=== PATIENT | female | born 1995 | race Caucasian/White ===

== ENCOUNTER → 2021-03-14 13:00 | Outpatient (BNVA) | payer BC, SELFPAY | PROVIDERS: Family Provider Family Medicine; Visit Provider Nurse Practitioner | DX: R10.9 Unspecified abdominal pain (principal); N39.0 Urinary tract infection, site not specified | CPT/HCPCS: 81000; 87086 ==

== ENCOUNTER 2025-08-22 08:54 | Inpatient (IN) | payer SELFPAY ==
[2025-08-22 08:59] VITALS: BP 124/92; PULSE 106; RESP 16; TEMP 36.7; O2SAT 100
--- NOTE | 2025-08-22 09:07 | USR_ITS ---
PROCEDURE INFORMATION: Exam: US Right Breast Limited; Cellulitis or Abscess Evaluation Exam date and time: 08/22/2025 9:33 AM Age: 30 years old Clinical indication: Breast pain; Right; Additional info: Mastitis TECHNIQUE: Imaging protocol: Right breast ultrasound. Exam limited to the quadrant(s) of clinical concern. Exam focused on the evaluation of cellulitis or abscess. Exam is an emergent request and a non-BIRADS study. COMPARISON: No relevant prior studies available. FINDINGS: Breast/Soft tissues: At the 1 to 5 o'clock position of the right breast there is diffuse edema and complex fluid collection. Findings are consistent with infection. US/US breast RT limited* [id number] IMPRESSION: Complex fluid and edema at the 1 to 5 o'clock position of the right breast suggestive of infection.
[2025-08-22] MEDS: cefTRIAXone 1,000 MG in water for injection-sterile 2.1 ML 2.1 MG IM (09:13)
--- NOTE | 2025-08-22 09:14 | W.ED.GENADLT ---
HPI - General Adult General: Chief complaint: General Medical Stated complaint: R brest 2 lumbs red fever Time Seen by Provider: 08/22/25 09:04 Source: patient Mode of arrival: ambulatory Limitations: no limitations History of Present Illness: 30-year-old female states that she has had redness swelling pain to right breast. Patient states she was seen at [facility] on Sunday has been Augmentin denies any improvement. States pain sharp in nature rates it a 7 out of 10 denies any fevers Related Data Home Medications ?Medication ?Instructions ?Recorded ?Confirmed amoxicillin 875 mg-potassium 1 tab PO BID 08/22/25 08/22/25 clavulanate 125 mg tablet Previous Rx's ?Medication ?Instructions ?Recorded clobetasol 0.05 % topical cream 1 applic topical BID 2 weeks #60 07/11/25 grams hydroxyzine HCl 50 mg tablet 50 mg PO Q6H PRN anxiety #60 tabs 07/11/25 Allergies Allergy/AdvReac Type Severity Reaction Status Date / Time No Known Allergies Allergy Verified 07/11/25 10:14 [facility] ED PFSH: Medical History Environmental and seasonal allergies Social History Smoking and tobacco/nicotine status: never used tobacco/nicotine Physical Exam Const: COMMON NORMALS: no acute distress, patient oriented x3 and healthy appearing HENMT: COMMON NORMALS: normocephalic and atraumatic HEAD & SCALP: normocephalic and atraumatic Neck/C-Spine: COMMON NORMALS: full ROM and supple Chest: COMMONS NORMALS: normal inspection of the chest Resp: COMMON NORMALS: normal respiratory effort Cardio: COMMON NORMALS: regular rate RATE: regular rate Extremity: COMMON NORMALS: normal to inspection and full ROM Neuro: COMMON NORMALS: patient oriented x3, moves all extremities and no focal motor deficits Psych: COMMON NORMALS: mental status grossly normal, Normal thought process present and cooperative THOUGHT PROCESS: Normal thought process present Skin: COMMON NORMALS: no wounds NARRATIVE SKIN EXAM: Erythema warmth to right breast Course Vital Signs: Vital signs: Vital Signs Temperature 98.0 F 08/22/25 08:59 Pulse Rate 105 H 08/22/25 10:07 Respiratory Rate 16 08/22/25 08:59 Blood Pressure 126/86 08/22/25 10:07 Pulse Oximetry 100 08/22/25 10:07 Oxygen Delivery Me thod Room Air 08/22/25 10:07 MDM - General Adult Medical Decision Making Patient presents here with redness to her right breast ultrasound here showed complex abscess. I did speak to surgeon on-call Dr. Kaufman who stated that patient likely take to the OR did give her IV vancomycin. Medical Records I reviewed the patient's medical records. Lab Data I reviewed the patient's lab results. 08/22/25 09:54 08/22/25 09:54 Radiology Impressions Breast Ultrasound 08/22/25 09:07 IMPRESSION: Complex fluid and edema at the 1 to 5 o'clock position of the right breast suggestive of infection. Laboratory Results WBC 11.98 10^3/uL (3.29-11.43) H 08/22/25 09:54 RBC 4.64 10^6/uL (3.85-5.65) 08/22/25 09:54 Hgb 13.60 g/dL (11.27-16.99) 08/22/25 09:54 Hct 40.0 % (36-47) 08/22/25 09:54 MCV 86.2 fl (85-98) 08/22/25 09:54 MCH 29.3 pg (27-33) 08/22/25 09:54 MCHC 34.0 g/dL (30-55) 08/22/25 09:54 RDW 12.3 % (12.1-15.1) 08/22/25 09:54 Plt Count 331 10^3/cmm (157-399) 08/22/25 09:54 MPV 8.7 fL (7.4-10.4) 08/22/25 09:54 Neut % (Auto) 79.1 % 08/22/25 09:54 Lymph % (Auto) 14.2 % 08/22/25 09:54 Mcpherson % (Auto) 5.3 % 08/22/25 09:54 Eos % (Auto) 0.6 % 08/22/25 09:54 Baso % (Auto) 0.3 % 08/22/25 09:54 Neut # (Auto) 9.49 10^3/uL (1.8-7.7) H 08/22/25 09:54 Lymph # (Auto) 1.7 10^3/uL (0.8-4.8) 08/22/25 09:54 Mcpherson # (Auto) 0.6 10^3/uL (0.2-0.9) 08/22/25 09:54 Eos # (Auto) 0.1 10^3/uL (0.0-0.8) 08/22/25 09:54 Baso # (Auto) 0.0 10^3/uL (0.0-0.1) 08/22/25 09:54 Nucleated RBC % (auto) 0 % 08/22/25 09:54 Nucleated RBCs # 0.0 /100WBC 08/22/25 09:54 Sodium 135 mmol/L (136-145) L 08/22/25 09:54 Potassium 3.9 mmol/L (3.5-5.1) 08/22/25 09:54 Chloride 98 mmol/L (98-107) 08/22/25 09:54 Carbon Dioxide 28 mmol/L (22-29) 08/22/25 09:54 Anion Gap 12.9 (5-19) 08/22/25 09:54 BUN 8 mg/dL (6-20) 08/22/25 09:54 Creatinine 0.4 mg/dL (0.5-0.9) L 08/22/25 09:54 GFR Calculation 187.4 mL/min (90-130) H 08/22/25 09:54 Glucose 103 mg/dL (65-115) 08/22/25 09:54 Calculated Osmolality 279 mOsm/kg (285-295) L 08/22/25 09:54 Calcium 8.9 mg/dL (8.5-10.5) 08/22/25 09:54 HCG, Qual Negative (Negative) 08/22/25 09:54 All radiology interpretation(s) finalized by discharge Discharge Plan Discharge Condition: Stable Prescriptions: No Action clobetasol 0.05 % cream 1 applic topical BID 14 Days Qty: 60 0RF hydroxyzine HCl 50 mg tablet 50 mg PO Q6H PRN (Reason: anxiety) Qty: 60 0RF amoxicillin-pot clavulanate [Augmentin] 875-125 mg Tablet 1 tab PO BID Print Language: Hong Konger Coding Level of Care Code ED Clothing Manager for Dixie Valle
[2025-08-22 09:59] LABS: Hematocrit 40.0 % (36-47); Hemoglobin 13.60 g/dL (11.27-16.99); Mean Corpuscular HGB Conc 34.0 g/dL (30-55); Mean Corpuscular Hemoglobin 29.3 pg (27-33); Mean Corpuscular Volume 86.2 fl (85-98); Nucleated Red Blood Cells % 0 %; Platelet Count 331 10^3/cmm (157-399); Red Blood Count 4.64 10^6/uL (3.85-5.65); White Blood Count 11.98 10^3/uL (3.29-11.43)
[2025-08-22 10:07] VITALS: BP 126/86; PULSE 105; O2SAT 100
[2025-08-22 10:16] LABS: Anion Gap 12.9 (5-19); Blood Urea Nitrogen 8 mg/dL (6-20); Calcium 8.9 mg/dL (8.5-10.5); Carbon Dioxide 28 mmol/L (22-29); Chloride 98 mmol/L (98-107); Glucose 103 mg/dL (65-115); Osmolality Calculated 279 mOsm/kg (285-295); Potassium 3.9 mmol/L (3.5-5.1); Sodium 135 mmol/L (136-145)
[2025-08-22 10:33] LABS: HCG, Serum Qual Negative (Negative)
--- NOTE | 2025-08-22 10:49 | PM.HP ---
Providers/Chief Complaint Chief Complaint: R brest 2 lumbs red fever History of Present Illness Nicolsaa Bentley is a 30 year old female who presents with a right breast abscess. Was treated outpatient with p.o. antibiotics since Sunday. Patient also had a piercing that was removed on Sunday. Reports chills. The right breast is erythematous and has a 3 x 3 cm area of fluctuance proximal to the nipple at 12:00. Exam consistent with ultrasound findings. This is the third episode of right breast abscess. No prior breast issues. Medications/Allergies Home Medications ?Medication ?Instructions ?Recorded ?Confirmed ?Last Taken ?Type clobetasol 0.05 % topical cream 1 applic topical BID 2 weeks #60 07/11/25 08/22/25 Unknown Rx grams hydroxyzine HCl 50 mg tablet 50 mg PO Q6H PRN anxiety #60 tabs 07/11/25 08/22/25 Unknown Rx amoxicillin 875 mg-potassium 1 tab PO BID 08/22/25 08/22/25 08/22/25 History clavulanate 125 mg tablet Allergies Allergy/AdvReac Type Severity Reaction Status Date / Time No Known Allergies Allergy Verified 07/11/25 10:14 PFSH Acute PFSH: Medical History (Updated 08/22/25 @ 14:44 by Diaz Kaufman MD) Environmental and seasonal allergies Social History Smoking and tobacco/nicotine status: never used tobacco/nicotine Vitals/I&O/Wt Last Vital Signs Temp 98.0 F 08/22/25 08:59 Pulse 105 H 08/22/25 10:07 Resp 16 08/22/25 08:59 BP 126/86 08/22/25 10:07 Pulse Ox 100 08/22/25 10:07 O2 Del Method Room Air 08/22/25 10:07 08/21/25 08/22/25 08/22/25 22:59 06:59 14:59 Intake Total 2.1 / 2.1 Balance 2.1 / 2.1 Weight last 48 hrs Weight 152 lb Physical Exam Narrative: Chest: Unlabored breathing room air. No lymphadenopathy. Right breast erythematous with a 3 x 3 cm area of fluctuance at 12:00. Heart: Regular rate and rhythm. Abdomen: Soft, nontender, nondistended. No masses or lymphadenopathy. Data 08/22/25 09:54 08/22/25 09:54 A&P Assessment and plan 1. Abscess of right breast: Plan: 30-year-old female who presents with a recurrent right breast abscess. Started on IV vancomycin. Explained that the standard of care is to proceed with antibiotics and IR aspiration of right breast abscess. Explained that proceeding to the OR for incision and drainage of abscess is also a possibility but she will have an open wound that she will need to pack for weeks and the appearance of the breast will change. Patient has elected to proceed with IV antibiotics for 1 day and to reassess in the morning. Will plan for n.p.o. after midnight and possible OR for incision and drainage of right breast abscess 08/23/2025 in the morning. Mother was present for the discussion and the entire encounter. Once she has recovered we will plan for bilateral diagnostic mammogram as outpatient. PDMP PDMP Reviewed: Not Reviewed Attestations Medical Necessity Statement*: IV antibiotics, IV pain meds Coding Level of Care Code 91508 Diagnoses Abscess of right breast N61.1
--- NOTE | 2025-08-22 11:10 | PC.NURSE ---
This nurse to room to round on PT. PT reports feeling hot itchy scalp, and red face. Flushing noticed to the face. Vancomycin stopped, Dr. Ch notified and verbal order for IV benadryl obtained. PT respirations are even and unlabored at this time. Oxygen saturations remain in the upper 90's.
[2025-08-22] MEDS: diphenhydrAMINE 50 mg/mL SDV 1mL IVP (11:14)
[2025-08-22 11:16] VITALS: BP 118/79; PULSE 130; RESP 16; O2SAT 100
[2025-08-22 11:58] VITALS: BP 108/59; PULSE 116; O2SAT 99
[2025-08-22 14:52] VITALS: RESP 18
[2025-08-22] MEDS: oxyCODONE-APAP 5-325 mg Tablet PO ×2 (14:52→20:02)
[2025-08-22 20:02] VITALS: RESP 17
[2025-08-23] VITALS (21 sets, daily range): BP systolic 95–115; BP diastolic 56–78; PULSE 66–122; RESP 12–22; TEMP 36.4–36.9; O2SAT 92–100
[2025-08-23] MEDS: oxyCODONE-APAP 5-325 mg Tablet PO ×4 (05:30→22:10)
--- NOTE | 2025-08-23 09:00 | ANES.PREANE2 ---
Pre-Anesthetic Assessment Height/Weight: Height 1.6 m Weight 72.121 kg Temp Pulse Resp BP Pulse Ox O2 Del Method 98.0 F 92 18 115/78 99 Room Air 08/23/25 08:30 08/23/25 08:30 08/23/25 08:30 08/23/25 08:30 08/23/25 08:30 08/23/25 08:30 Operation Date: 08/23/25 09:10 Proposed Procedures p Incision and Drainage Chest I&D Breast right breast(Right) - Diaz Kaufman MD Familial anesthetic complications: None Was Beta Trey taken within 24 hours: N/A Was Clonidine taken within 24 hours: N/A Last intake: Intake Last Liquid Date 08/22/25 Last Liquid Time 23:00 Last Solid Date 08/22/25 Last Solid Time 23:00 Social No alcohol and No tobacco Exam alert, oriented x 3, clear to auscultation bilaterally and regular rate & rhythm Airway Dentition: other (1 missing) Anesthetic Plan ASA status: 1 Anesthesia: General Risk of > 500 ml blood loss (7ml/kg in children): No Medications/Allergies Home Medications ?Medication ?Instructions ?Recorded ?Confirmed ?Last Taken ?Type clobetasol 0.05 % topical cream 1 applic topical BID 2 weeks #60 07/11/25 08/22/25 Unknown Rx grams hydroxyzine HCl 50 mg tablet 50 mg PO Q6H PRN anxiety #60 tabs 07/11/25 08/22/25 Unknown Rx amoxicillin 875 mg-potassium 1 tab PO BID 08/22/25 08/22/25 08/22/25 History clavulanate 125 mg tablet Allergies Allergy/AdvReac Type Severity Reaction Status Date / Time No Known Allergies Allergy Verified 07/11/25 10:14 Current Medications Generic Name Dose Route Start Last Admin Trade Name Freq PRN Reason Stop Dose Admin Acetaminophen 1,000 mg 08/22/25 14:37 08/23/25 00:29 Acetaminophen 500 Mg Tablet PO 1,000 mg Q6H PRN Administration MILD PAIN OR INCREASE TEMP Sodium Chloride 1,000 mls @ 100 mls/hr 08/22/25 13:10 08/23/25 05:21 Sodium Chloride 0.9% IV 100 mls/hr .Q10H CECELIA Administration Vancomycin HCl 1,000 mg/ 250 mls @ 250 mls/hr 08/22/25 17:00 08/23/25 08:12 Sodium Chloride IV 250 mls/hr Q8H CECELIA Administration Ibuprofen 800 mg 08/22/25 15:00 08/23/25 05:03 Ibuprofen 800 Mg Tablet PO Not Given Q8H CECELIA Oxycodone/Acetaminophen 1 - 2 tab 08/22/25 14:24 08/23/25 05:30 Oxycodone-Apap 5-325 Mg Tablet PO 1 tab Q4H PRN Administration MODERATE TO SEVERE PAIN PFSH Anesthesia Medical History (Updated 08/22/25 @ 14:44 by Diaz Kaufman MD) Environmental and seasonal allergies Social History Smoking and tobacco/nicotine status: never used tobacco/nicotine Data Anesthesia 08/22/25 09:54 08/22/25 09:54 Short CBC 08/22/25 Range/Units 09:54 WBC 11.98 H (3.29-11.43) 10^3/uL Hgb 13.60 (11.27-16.99) g/dL Hct 40.0 (36-47) % MCV 86.2 (85-98) fl Plt Count 331 (157-399) 10^3/cmm Neut % (Auto) 79.1 % Neut # (Auto) 9.49 H (1.8-7.7) 10^3/uL BMP 08/22/25 09:54 Sodium 135 L Potassium 3.9 Chloride 98 Carbon Dioxide 28 BUN 8 Creatinine 0.4 L Glucose 103 Calcium 8.9
--- NOTE | 2025-08-23 09:03 | P.PN_ITS ---
Subjective 2 Subjective: No acute events overnight Afebrile Cellulitis about the same Vitals/I&O/Wt Last Vital Signs Temp 98.0 F 08/23/25 08:30 Pulse 92 08/23/25 08:30 Resp 18 08/23/25 08:30 BP 115/78 08/23/25 08:30 Pulse Ox 99 08/23/25 08:30 O2 Del Method Room Air 08/23/25 08:30 08/22/25 08/23/25 08/23/25 22:59 06:59 14:59 Intake Total 490 / 020.912 6132 / 1883.767 Balance 490 / 341.500 9266 / 1883.767 Weight last 48 hrs Weight 159 lb Weight 159 lb 6.4 oz Weight 152 lb Physical Exam 2 Narrative: Chest: Unlabored breathing room air. Right breast cellulitis with 3 x 3 cm area of fluctuance Heart: Regular rate and rhythm. Abdomen: Soft, nontender, nondistended. No masses or lymphadenopathy. Data 08/22/25 09:54 08/22/25 09:54 A&P Assessment and plan 1. Abscess of right breast: Plan: 30-year-old female who presented with a right breast abscess. Patient has decided to proceed with to the OR for I&D of right breast abscess. Will plan for 1 more day of IV antibiotics. Discussed risk and benefits and patient agreed to proceed with right breast abscess incision and drainage. Patient understands the risk include scarring, change in the appearance of the breast, recurrent infection, bleeding. Patient still decides to proceed. PDMP PDMP Reviewed: Not Reviewed Attestations 2 Medical Necessity Statement*: IV antibiotics, IV fluids, IV pain meds Coding Level of Care Code 84820 Diagnoses Abscess of right breast N61.1
--- NOTE | 2025-08-23 09:38 | P.OP_ITS ---
Operative Report Date of procedure: August 23, 2025 Pre-op diagnosis: Right breast abscess Post-op diagnosis: same Post-op findings: Right breast abscess cavity 8 x 6 x 4 cm. Evacuated about 150 cc of purulent fluid. Cultures sent. Washed out the cavity with 1 L normal saline and 500 cc of diluted peroxide. Cavity packed. Procedure done: Incision and drainage of right breast abscess Implants: N/A Specimens removed/disposition: Cultures sent to microbiology Pathology: none sent Surgeon: Diaz Kaufman MD Denier Control Operator: N/A Anesthesia: MAC Estimated blood loss (mL): 10 Complications: N/A Findings: Right breast abscess cavity 8 x 6 x 4 cm. Evacuated about 150 cc of purulent fluid. Cultures sent. Washed out the cavity with 1 L normal saline and 500 cc of diluted peroxide. Cavity packed. Condition: stable Disposition: floor Brief History: 30-year-old female with a right breast abscess. Discussed risk and benefits and patient agreed to proceed with right breast abscess incision and drainage. Procedure: Consent obtained in the preop area. Right breast marked. Patient was transported to the OR and laid supine on the OR table. MAC induced. Vancomycin administered in the operating room prior to incision. The right breast with pr epped and draped in the usual sterile fashion. A 3 cm incision was carried out scalpel over the point of maximal fluctuance. Immediately purulent fluid was obtained. Cultures were sent. Approximately 850 cc of purulent fluid was evacuated. Abscess cavity loculations were broken down. The cavity was irrigated using 1 L of normal saline and 500 cc of diluted peroxide. Hemostasis was achieved using electrocautery. The cavity was packed using Kerlix moistened with Betadine. A sterile dressing was applied. The patient woke up from anesthesia without any complications.
--- NOTE | 2025-08-23 09:50 | PM.MISC ---
Miscellaneous Note Note: Tried to reach mother at number provided. No answer
--- NOTE | 2025-08-23 10:15 | ANE.PACU2 ---
Inpatient post-anesthesia follow up: Airway intact: Yes Vital signs: Temperature 98.5 F Pulse Rate 78 Respiratory Rate 18 Blood Pressure 104/60 Pulse Oximetry 95 Oxygen Delivery Me thod Room Air Oxygen Flow Rate Fraction of Inspir ed Oxygen Hydration adequate: Yes Nausea and vomiting: No Pain level: 1 Mental status: Baseline
--- NOTE | 2025-08-23 12:57 | SUR.OPER ---
SURGERY PERFORMED IN OB 1
--- NOTE | 2025-08-23 17:18 | PHA.VACGOAL ---
Vancomycin Goal - Goal Vancomycin Goal:: 10-15 mg/L Vancomycin Indication:: SSTI - Therapy Day of therpy:: Day []of [] . Actual body weight (kg): 72.121 kg - Data Labs: WBC 11.98 10^3/uL (3.29-11.43) H 08/22/25 09:54 RBC 4.64 10^6/uL (3.85-5.65) 08/22/25 09:54 Hgb 13.60 g/dL (11.27-16.99) 08/22/25 09:54 Hct 40.0 % (36-47) 08/22/25 09:54 MCV 86.2 fl (85-98) 08/22/25 09:54 MCH 29.3 pg (27-33) 08/22/25 09:54 MCHC 34.0 g/dL (30-55) 08/22/25 09:54 RDW 12.3 % (12.1-15.1) 08/22/25 09:54 Sodium 135 mmol/L (136-145) L 08/22/25 09:54 Potassium 3.9 mmol/L (3.5-5.1) 08/22/25 09:54 Chloride 98 mmol/L (98-107) 08/22/25 09:54 Carbon Dioxide 28 mmol/L (22-29) 08/22/25 09:54 Anion Gap 12.9 (5-19) 08/22/25 09:54 BUN 8 mg/dL (6-20) 08/22/25 09:54 Creatinine 0.4 mg/dL (0.5-0.9) L 08/22/25 09:54 GFR Calculation 187.4 mL/min (90-130) H 08/22/25 09:54 Treatment plan:: new consult Regimen:: New start vancomycin for abscess of right breast. No prior vancomycin history found. Started on maintenance dose of 1000 mg q8h. Vancomycin trough below goal range of 10-15 mg/L. Dose adjusted to 1250 mg q8h. Laboratory Tests 08/23/25 16:35 Vancomycin Trough 4.2 L
[2025-08-24 04:00] VITALS: BP 107/74; PULSE 67; RESP 16; TEMP 36.5; O2SAT 95
[2025-08-24 07:09] VITALS: BP 112/66; PULSE 87; RESP 20; TEMP 36.4; O2SAT 94
[2025-08-24 07:53] VITALS: RESP 18
[2025-08-24] MEDS: oxyCODONE-APAP 5-325 mg Tablet PO ×2 (07:53→11:56)
--- NOTE | 2025-08-24 10:02 | PC.CHAP ---
Pastoral Care Encounter/Spiritual Assessment Type of Contact [] Declined tow truck driver visit [] Patient/Family/Request visit [] Outpatient visit [] Follow-up visit [] Physician referral [] Code/Alert [x] Routine visit [] Staff referral [] Actively dying [] Patient sleeping [] Family support [] [] Out of room [] Palliative care [] [] Receiving care in room [] Pre-surgical visit [] Trauma [] Long length of stay [] ICU visit [] Other: Relational/Emotional Strength [] Patient feels connected with others/family/visitors/staff [] Distress [] Loneliness/isolation [] Abandonment Spirituality of Patient [x] Person of Margaret [] Attends Bahai of their Margaret [x] Believes in Prayer [] Reads Bible or Scientology materials [] There are Spiritual issues to be addressed Senior Media Director Interventions [x] Prayer [x] Active listening [] Non-anxious presence [] Spiritual/emotional support [] Crisis/trauma care [] Spiritual counseling [] Bereavement support [] Provided bereavement packet [x] Provided Bible/devotional materials [] Provided toy/stuffed animal, coloring book to patient or family member [] Provided Communion [] Anointing/[place] [] Salvation [x] Completed spiritual assessment [] Other: Impact on Illness or Injury [] Angry [] Fearful [] Anxious [] Often cries [] Exhaustion [] Unable to work [] Unable to attend moravian [] Unable to walk/stand [] Unable to read [] Unable to drive [] Unable to eat/drink [] Unable to sleep [] Unable to be with family [] Patient intubated [] Other: Summary Time spent with patient 5 min
--- NOTE | 2025-08-24 10:10 | P.PN_ITS ---
Subjective 2 Subjective: No acute events overnight Vitals/I&O/Wt Last Vital Signs Temp 97.6 F 08/24/25 07:09 Pulse 87 08/24/25 07:09 Resp 18 08/24/25 07:53 BP 112/66 08/24/25 07:09 Pulse Ox 94 08/24/25 07:09 O2 Del Method Room Air 08/24/25 07:09 08/23/25 08/24/25 08/24/25 22:59 06:59 14:59 Intake Total 1490 / 2700 250 / 2950 Balance 1490 / 2690 250 / 2940 Weight last 48 hrs Weight 161 lb Weight 159 lb Weight 159 lb 6.4 oz Physical Exam 2 Narrative: Chest: Unlabored breathing room air. No lymphadenopathy. Breast packing changed. Cellulitis significantly improved. Wound clean. Packing replaced. Heart: Regular rate and rhythm. Abdomen: Soft, nontender, nondistended. No masses or lymphadenopathy. Data 08/22/25 09:54 08/22/25 09:54 Micro: Microbiology 08/23/25 09:21 Gram Stain - Final Breast - Right A&P Assessment and plan 1. Abscess of right breast: Plan: 30-year-old female who presented with right breast abscess. Status post incision and drainage. Replace packing. Wound is clean. Cellulitis improved. Cleared for discharge on course of oral antibiotics. Follow-up in 1 week. Instructed on reasons to come back to the emergency department. PDMP PDMP Reviewed: Last Reviewed 08/24/25 11:11 EST by Diaz Kaufman MD Attestations 2 Medical Necessity Statement*: IV fluids, IV antibiotics, IV pain meds Coding Level of Care Code 01831 Diagnoses Abscess of right breast N61.1
--- NOTE | 2025-08-24 10:10 | P.DS_ITS ---
Discharge Providers Date of Admission: 08/22/25 10:35 Date of Discharge: August 24, 2025 Attending Provider at Admission: Diaz Kaufman MD Attending Provider at Discharge: Diaz Kaufman MD Diagnoses at Discharge Discharge Diagnosis 1. Abscess of right breast: Reason for Visit Reason for Visit: R humphreyst 2 lumbs red fever Hospital Course Hospital Course 30-year-old female who presented with right breast abscess and cellulitis. Failed an outpatient course of oral antibiotics. Admitted for IV antibiotics, IV fluids, analgesia. Taken to the OR the following day for incision and drainage of right breast abscess. Patient was discharged on postoperative day 1 after packing was changed. Will discharge on an oral course of antibiotics. Follow-up in 1 week in clinic. Change packing daily. Instructed patient how to do this. Physical Exam Narrative: Chest: Unlabored breathing room air. No lymphadenopathy. Breast packing changed. Cellulitis significantly improved. Wound clean. Packing replaced. Heart: Regular rate and rhythm. Abdomen: Soft, nontender, nondistended. No masses or lymphadenopathy. Discharge Data Studies Completed and Pending Completed Studies During Hospitalization Category Date Time Status US breast RT limited* [id number] Stat Ultrasound 08/22/25 09:07 Completed Pending at discharge Category Date Time Status Anaerobic Culture Routine Lab 08/23/25 09:21 Results Wound Culture and Gram Stain Routine Lab 08/23/25 09:21 Results Radiology Impressions Breast Ultrasound 08/22/25 09:07 IMPRESSION: Complex fluid and edema at the 1 to 5 o'clock position of the right breast suggestive of infection. Laboratory Results WBC 11.98 10^3/uL (3.29-11.43) H 08/22/25 09:54 RBC 4.64 10^6/uL (3.85-5.65) 08/22/25 09:54 Hgb 13.60 g/dL (11.27-16.99) 08/22/25 09:54 Hct 40.0 % (36-47) 08/22/25 09:54 MCV 86.2 fl (85-98) 08/22/25 09:54 MCH 29.3 pg (27-33) 08/22/25 09:54 MCHC 34.0 g/dL (30-55) 08/22/25 09:54 RDW 12.3 % (12.1-15.1) 08/22/25 09:54 Plt Count 331 10^3/cmm (157-399) 08/22/25 09:54 MPV 8.7 fL (7.4-10.4) 08/22/25 09:54 Neut % (Auto) 79.1 % 08/22/25 09:54 Lymph % (Auto) 14.2 % 08/22/25 09:54 [place] % (Auto) 5.3 % 08/22/25 09:54 Eos % (Auto) 0.6 % 08/22/25 09:54 Baso % (Auto) 0.3 % 08/22/25 09:54 Neut # (Auto) 9.49 10^3/uL (1.8-7.7) H 08/22/25 09:54 Lymph # (Auto) 1.7 10^3/uL (0.8-4.8) 08/22/25 09:54 [place] # (Auto) 0.6 10^3/uL (0.2-0.9) 08/22/25 09:54 Eos # (Auto) 0.1 10^3/uL (0.0-0.8) 08/22/25 09:54 Baso # (Auto) 0.0 10^3/uL (0.0-0.1) 08/22/25 09:54 Nucleated RBC % (auto) 0 % 08/22/25 09:54 Nucleated RBCs # 0.0 /100WBC 08/22/25 09:54 Sodium 135 mmol/L (136-145) L 08/22/25 09:54 Potassium 3.9 mmol/L (3.5-5.1) 08/22/25 09:54 Chloride 98 mmol/L (98-107) 08/22/25 09:54 Carbon Dioxide 28 mmol/L (22-29) 08/22/25 09:54 Anion Gap 12.9 (5-19) 08/22/25 09:54 BUN 8 mg/dL (6-20) 08/22/25 09:54 Creatinine 0.4 mg/dL (0.5-0.9) L 08/22/25 09:54 GFR Calculation 187.4 mL/min (90-130) H 08/22/25 09:54 Glucose 103 mg/dL (65-115) 08/22/25 09:54 Calculated Osmolality 279 mOsm/kg (285-295) L 08/22/25 09:54 Calcium 8.9 mg/dL (8.5-10.5) 08/22/25 09:54 HCG, Qual Negative (Negative) 08/22/25 09:54 Vancomycin Trough 4.2 ug/mL (10-15) L 08/23/25 16:35 Vitals Last Vital Signs Temp 97.6 F 08/24/25 07:09 Pulse 87 08/24/25 07:09 Resp 18 08/24/25 07:53 BP 112/66 08/24/25 07:09 Pulse Ox 94 08/24/25 07:09 O2 Del Method Room Air 08/24/25 07:09 Discharge Plan Discharge Patient Disposition: Home Condition: Stable Prescriptions: New sulfamethoxazole-trimethoprim [Bactrim DS] 800-160 mg tablet 1 tab PO BID 14 Days Qty: 28 0RF oxycodone 5 mg tablet 5 mg PO Q6H PRN (Reason: pain) 10 Days Qty: 20 0RF Continued clobetasol 0.05 % cream 1 applic topical BID 14 Days Qty: 60 0RF hydroxyzine HCl 50 mg tablet 50 mg PO Q6H PRN (Reason: anxiety) Qty: 60 0RF Discontinued amoxicillin-pot clavulanate [Augmentin] 875-125 mg Tablet 1 tab PO BID Discharge Order = DC NOW: Discharge Order (Routine); Ordered 08/24/25 Ordered By: Diaz Kaufman Referrals: Diaz Kaufman MD [Physician, General Surgery] - 08/31/25 11:35 am Discharge Diet: Usual diet Discharge Activity: Resume usual activity Patient Instructions: Sulfamethoxazole/Trimethoprim (By mouth), Oxycodone, Rapid Release (By mouth), Acute Wound Care (DC), Abscess (GEN), Opioid Safety, Post Anesthesia Care, Patient Portal & Rafael Instructions Activity Restrictions/Additional Instructions: 1. Change packing daily. Cover with dry gauze. 2. No pools, saunas, bathtubs for 2 weeks. Ok to shower. 3. Do not drive if taking narcotics. 4. You may take over the counter tylenol 650mg every 6 hrs and ibuprofen 400mg every 6 hrs as needed for 5 days in addition to the oxycodone. 5. Follow-up in clinic in 1 weeks. 6. Call the office if you have any concerns or questions. Call the office if you experience worsening abdominal pain or fever (temperature greater than 101.5 Fahrenheit) Discharge Attestations Time Spent in Discharge Care*: greater than 30 min Quality Metrics Clinical Quality Measures [ No reported AMI, CVA or VTE this stay] Coding Level of Care Code Acute Code for Chg Fwd Diagnoses Abscess of right breast N61.1
[2025-08-24 11:46] VITALS: BP 114/72; PULSE 98; RESP 18; TEMP 36.4; O2SAT 94
[2025-08-24 11:56] VITALS: RESP 17
[2025-08-24 14:04] VITALS: BP 114/72; PULSE 98; RESP 18; TEMP 36.4; O2SAT 94
== END 2025-08-24 12:30 | disposition home or self-care (01) | DRG 585 ==
LOC: ER 11:06 → MEDSURG 11:38
PROVIDERS: Admitting Provider Student in an Organized Health Care Education/Training Program; Emergency Provider Emergency Medicine; Visit Provider Student in an Organized Health Care Education/Training Program
PROC: 0H9T0ZZ Drainage of Right Breast, Open Approach (ICD-10-PCS; principal; 2025-08-23 09:00)
DX: N61.1 Abscess of the breast and nipple (principal)
CPT/HCPCS: 36415; 76642; 80048; 80202; 84703; 85025; 87070; 87075; 87077; 87186; 87205; 96365; 96372; 96375; 99285; J0696; J1100; J1171; J1200; J1885; J2250; J2405; J2704; J3010; J3373; J7030; J7050; J9999